=== PATIENT | male | born 1970 | race Caucasian/White ===

== ENCOUNTER 2021-10-01 10:09 | Emergency (ER) | payer MEDICAID ==
[2021-10-01] MEDS ORDERED: Ketorolac 30 MG/ML SDV IM ONE (10:58)
== END 2021-10-01 11:38 | disposition home or self-care (01) ==
LOC: FB.ED 10:09
DX: M25.531 Pain in right wrist (principal); I25.10 Atherosclerotic heart disease of native coronary artery without angina pectoris; E78.00 Pure hypercholesterolemia, unspecified; I10 Essential (primary) hypertension; E66.9 Obesity, unspecified; Z68.39 Body mass index [BMI] 39.0-39.9, adult; I25.2 Old myocardial infarction; Z95.5 Presence of coronary angioplasty implant and graft; Z91.030 Bee allergy status; Z91.040 Latex allergy status; Z88.8 Allergy status to other drugs, medicaments and biological substances; Z79.82 Long term (current) use of aspirin; Z79.899 Other long term (current) drug therapy
CPT/HCPCS: 73110-RT; 96372; 99283; J1885

== ENCOUNTER 2023-02-14 17:52 | Emergency (ER) | payer MEDICAID ==
[2023-02-14] MEDS: Ketorolac 30 MG/ML SDV IM ONE (20:21)
[2023-02-14] MEDS: Triamcinolone Acetonide 40 MG/ML 1 ML SDV IM ONE (20:22)
== END 2023-02-14 21:28 | disposition home or self-care (01) ==
LOC: FB.ED 17:52
DX: M25.571 Pain in right ankle and joints of right foot (principal); I25.10 Atherosclerotic heart disease of native coronary artery without angina pectoris; I10 Essential (primary) hypertension; I25.2 Old myocardial infarction; J44.9 Chronic obstructive pulmonary disease, unspecified; E78.00 Pure hypercholesterolemia, unspecified; M10.9 Gout, unspecified; E66.9 Obesity, unspecified; Z68.29 Body mass index [BMI] 29.0-29.9, adult; Z79.01 Long term (current) use of anticoagulants; Z79.82 Long term (current) use of aspirin; Z79.899 Other long term (current) drug therapy; Z91.030 Bee allergy status; Z91.040 Latex allergy status; Z88.8 Allergy status to other drugs, medicaments and biological substances
CPT/HCPCS: 73610-RT; 96372; 99283; J1885; J3301